=== PATIENT | female | born 1940 | race Caucasian/White ===

== ENCOUNTER → 2016-09-21 10:50 | Day surgery (SDC) | payer MEDICARE, OTHER ==
[~2016-09-21 10:50] MED LIST: Buffered Lidocaine 1% SYRIN* 3 ML/SYR SYRINGE INTRADERM ONE; Bupivacaine 0.5% SDV PF* 30 ML VIAL ONE; HYDROcodone/ACETAMIN 5-325 MG* 1 TAB ONE; HYDROcodone/ACETAMIN 5-325 MG* 1 TAB PO PRN; HYDROmorphone* 1 MG/ML 1 ML SYR IV PRN; Lidocaine 2% PF* 10 ML AMP ONE; Midazolam* 1 MG/ML 2 ML VIAL (2 MG) ONE; Ondansetron INJ* 2 MG/ML VIAL IV PRN; Propofol* 10 MG/ML 20 ML BTL IV PUSH ONE; ceFAZolin 2 GM PREMIX(*) 2 GM/50 ML BAG IVPB ONE; fentaNYL* 50 MCG/ML 2 ML VIAL (100 MCG VIAL) ONE
[2016-09-21 14:14] VITALS: BP 148/64
--- NOTE | 2016-09-22 10:07 | OP ---
OPERATIVE REPORT: DATE OF OPERATION: 09/21/16 DATE OF : 44 SURGEON: Arnold Law MD MANAGER SUP[employer]AIN PLANNING: "Martine Leal" PA student. 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 OPERATIVE PROCEDURE: Proximal interphalangeal joint resection arthroplasty of the left second toe a nd metatarsophalangeal joint resection arthroplasty of the second metatarsophalangeal joint. DESCRIPTION OF PROCEDURE: The patient was taken to the operating room where a longitudinal incision was made between the second and third MTP joints. We reflected the extensor tendons medially to al low dorsal capsulotomy of the MTP joint. There was a contracture at the more medial aspect. We sub luxed the joint plantarward to allow visualization of the cartilage, which was quite arthritic. in concepcion a microsagittal saw, I resected the distal dorsal and plantar aspects of the metatarsal head to al low a chamfer effect. I then made a resection arthroplasty of the PIP joint with a transverse elliptical incision and a mi crosagittal saw to remove the condyles. We then pinned the entire construct longitudinally with 0.0 62 C-wire. We irrigated both wounds thoroughly, closing with Vicryl and nylon sutures for the toe a nd a compression dressing and plaster splint applied. [id number]/[facility] #: [id number]
== END | disposition home or self-care (01) ==
LOC: OR 10:50
PROVIDERS: ATTEND Orthopaedic Surgery
DX: M20.42 Other hammer toe(s) (acquired), left foot (principal); I10 Essential (primary) hypertension; E78.00 Pure hypercholesterolemia, unspecified; E11.9 Type 2 diabetes mellitus without complications; Z87.891 Personal history of nicotine dependence
CPT/HCPCS: C1776; J0690; J2001; J2250; J2704; J3010

== ENCOUNTER 2019-01-12 15:37 | Emergency (ER) | payer MEDICARE, OTHER ==
[2019-01-12 15:53] VITALS: BP 152/88
--- NOTE | 2019-01-12 16:07 | UC ---
General HPI - HPI Summary HPI Summary: Pt presents at request of PCP . Pt reports that she went to a local pharmacy to have her blood pressure randomly taken and at both times takentoday it was elevated beyond her normal range. She denies PARR, vision change, SOB, or edema. - History of Current Complaint Chief Complaint: UCGeneralIllness Stated Complaint: ELEVATED BLOOD PRESSURE Time Seen by Provider: 01/12/19 15:48 Hx Obtained From: Patient Onset/Duration: Sudden Onset Timing: Constant Onset Severity: Mild Current Severity: None Pain Intensity: 0 - Allergy/Home Medications Allergies/Adverse Reactions: Allergies Allergy/AdvReac Type Severity Reaction Status Date / Time meloxicam Allergy Nausea And Verified 01/12/19 15:53 Vomiting technetium-99m Allergy Nausea And Verified 01/12/19 15:53 Vomiting Home Medications: Home Medications EPINEPHrine [Epipen] 0.3 mg IJ DAILY PRN 01/12/19 [History Confirmed 01/12/19] Olmesartan Medoxomil [Benicar] 20 mg PO DAILY 01/12/19 [History Confirmed ] PMH/Surg Hx/FS Hx/Imm Hx Previously Healthy: Yes Cardiovascular History: Hypertension - Surgical History Surgical History: Yes Surgery Procedure, Year, and Place: 1975 [place]. BILATERAL CATARACT SURG [facility] [place]. LEFT TOTAL KNEE REPLACEMENT 2009 [place]. RIGHT TOTAL KNEE REPLACEMENT 2014 [facility] [place] - Family History Known Family History: Positive: Cardiac Disease - Social History Occupation: Retired Lives: With Family Alcohol Use: Weekly Alcohol Amount: 3 DRINKS/WEEK Substance Use Type: None Smoking Status (MU): Former Smoker Amount Used/How Often: 3 CIGS/DAY FOR 10 YRS Length of Time of Smoking/Using Tobacco: 10 YRS Have You Smoked in the Last Year: No When Did the Patient Quit Smoking/Using Tobacco: 40 YRS AGO - Immunization History Most Recent Influenza Vaccination: 2013 Most Recent Tetanus Shot: UNKNOWN Most Recent Pneumonia Vaccination: 2010 Vaccination Up to Date: Yes Review of Systems All Other Systems Reviewed And Are Negative: Yes Constitutional: Positive: Negative Skin: Positive: Negative Eyes: Positive: Negative ENT: Positive: Negative Respiratory: Positive: Negative Cardiovascular: Positive: Negative Gastrointestinal: Positive: Negative Genitourinary: Positive: Negative Motor: Positive: Negative Neurovascular: Positive: Negative Musculoskeletal: Positive: Negative Neurological: Positive: Negative Psychological: Positive: Negative Is Patient Immunocompromised?: No Physical Exam Triage Information Reviewed: Yes Appearance: Well-Appearing Vital Signs: Initial Vital Signs Temp 98.0 F 01/12/19 15:47 Pulse 82 01/12/19 15:47 Resp 17 01/12/19 15:47 BP 152/88 01/12/19 15:47 Pulse Ox 98 01/12/19 15:47 Vital Signs Reviewed: Yes Eye Exam: Normal ENT Exam: Normal Dental Exam: Normal Neck exam: Normal Respiratory Exam: Normal Cardiovascular Exam: Normal Musculoskeletal Exam: Normal Neurological Exam: Normal Psychological Exam: Normal Skin Exam: Normal Course/Dx - Diagnoses Provider Diagnosis: Elevated blood pressure reading Discharge - Sign-Out/Discharge Documenting (check all that apply): Patient Departure All imaging exams completed and their final reports reviewed: No Studies - Discharge Plan Condition: Stable Disposition: HOME Patient Education Materials: Chronic Hypertension (ED) Referrals: Mayra Jimenez MD [Primary Care Provider] - If Needed Additional Instructions: Please note that your Blood pressure at today's visit was 152/88. Please follo dano with your PCP. - Billing Disposition and Condition Condition: STABLE Disposition: Home
== END 2019-01-12 16:12 | disposition home or self-care (01) ==
LOC: UCCORT 15:37
DX: I10 Essential (primary) hypertension (principal); F17.210 Nicotine dependence, cigarettes, uncomplicated
CPT/HCPCS: 99211; G0463

== ENCOUNTER 2023-10-05 07:30 | Observation (INO) ==
[~2023-10-05 07:30] MED LIST changes: -Buffered Lidocaine 1% SYRIN* 3 ML/SYR SYRINGE INTRADERM ONE; -Bupivacaine 0.5% SDV PF* 30 ML VIAL ONE; -HYDROcodone/ACETAMIN 5-325 MG* 1 TAB ONE; -HYDROcodone/ACETAMIN 5-325 MG* 1 TAB PO PRN; -HYDROmorphone* 1 MG/ML 1 ML SYR IV PRN; -Lidocaine 2% PF* 10 ML AMP ONE; -Midazolam* 1 MG/ML 2 ML VIAL (2 MG) ONE; +NS 0.45% 1000 ml BAG 1,000 ML IV SCH; +Naloxone 0.4 mg VIAL 0.4 mg/ml 1 ml VIAL IV PRN; +Ondansetron 4 mg VIAL 2 MG/ML 2 ml VIAL IV PRN; -Ondansetron INJ* 2 MG/ML VIAL IV PRN; -Propofol* 10 MG/ML 20 ML BTL IV PUSH ONE; -ceFAZolin 2 GM PREMIX(*) 2 GM/50 ML BAG IVPB ONE; +fentaNYL 100 mcg/2 ml 50 MCG/ML VIAL IV PRN; -fentaNYL* 50 MCG/ML 2 ML VIAL (100 MCG VIAL) ONE
[2023-10-05] MEDS ORDERED: Propofol 10 MG/ML 20 ML BTL ONE ×2 (12:54→17:10)
[2023-10-05] MEDS ORDERED: Tranexamic Acid 1 GM/100ML BAG 2,000 MG/200 ML BAG IV ONE (12:55)
[2023-10-05] MEDS ORDERED: ceFAZolin 2 GM PREMIX 2 GM/50 ML BAG ONE (12:56)
[2023-10-05] MEDS: Lactated Ringers 1000 ml BAG 1,000 ML IV SCH ×2 (13:15→19:55)
[2023-10-05 13:20] LABS: Rapid COVID-19 Molecular Undetected (Undetected)
[2023-10-05] MEDS ORDERED: ROPIVACAINE 5 MG/ML 30 ML BTL (0.5%) ONE (14:20)
[2023-10-05] MEDS ORDERED: fentaNYL 100 mcg/2 ml 50 MCG/ML VIAL ONE (15:00)
[2023-10-05] MEDS ORDERED: Midazolam 2 mg/2 ml VIAL 1 mg/ml 2 ml VIAL (2 mg) ONE (15:00)
[2023-10-05] MEDS ORDERED: Bupivacaine-MPF SPINAL 7.5 MG/ML - 2ML AMP ONE (15:12)
[2023-10-05] MEDS ORDERED: Ondansetron 4 mg VIAL 2 MG/ML 2 ml VIAL ONE (15:51)
[2023-10-05] MEDS ORDERED: Dexamethasone IV 4 MG/ML VIAL 1 ml VIAL ONE (15:51)
[2023-10-05] MEDS ORDERED: Lactulose 30 ml UDC PO PRN (16:08)
[2023-10-05] MEDS ORDERED: Ondansetron 4 mg VIAL 2 MG/ML 2 ml VIAL IV PRN (16:08)
[2023-10-05] MEDS ORDERED: Morphine 2 MG/ML SYRINGE IV PRN (16:08)
[2023-10-05] MEDS ORDERED: Magnesium Hydroxide LIQ 30 ML UDC PO PRN (16:08)
[2023-10-05] MEDS ORDERED: Ondansetron ODT 4 mg TAB 4 MG TAB PO PRN (16:08)
[2023-10-05] MEDS ORDERED: Bacitracin OINTMENT TUBE ONE (17:49)
[2023-10-05] MEDS: Magnesium Hydroxide LIQ 30 ML UDC PO SCH (20:11)
[2023-10-05] MEDS: Acetaminophen IV 1 GM/100ML 1,000 MG/100 ML BAG IV ONE (21:56)
[2023-10-05] MEDS: Buffered Lidocaine 1% SYRIN 1 ml INTRADERM ONE (21:56)
[2023-10-06] MEDS: ceFAZolin 1 GM ADVAN 1 GM in NS 0.9% 50 ML 50 ML IVPB SCH (00:10)
[2023-10-06 05:23] LABS: Hematocrit 29.9 % (35-45); Hemoglobin 9.9 g/dL (11.5-14.3); Mean Platelet Volume 8.6 fL (7.5-11.2); Platelet Count 162 10^3/uL (150-450)
[2023-10-06 05:56] LABS: Calcium 8.5 mg/dL (8.6-10.3); Creatinine, Serum 0.96 mg/dL (0.51-0.95); Potassium 4.6 mmol/L (3.5-5.0); eGFR CKD-EPI 59.8 (>60)
[2023-10-06] MEDS: Vitamin THERAPEUTIC TAB PO SCH (08:43)
[2023-10-06] MEDS: FERROUS FUMARATE PO SCH (13:13)
[2023-10-06 14:32] VITALS: BP 118/42
== END 2023-10-06 15:45 | disposition home or self-care (01) ==
LOC: INTOOBSV 12:08 → AA 12:08 → SSU 19:46
PROVIDERS: ADMIT Orthopaedic Surgery Adult Reconstructive Orthopaedic Surgery; ATTEND Orthopaedic Surgery Adult Reconstructive Orthopaedic Surgery